=== PATIENT | female | born 1935 | race Caucasian/White ===

== ENCOUNTER 2017-09-28 09:39 | Outpatient (CLI) | payer MEDICARE ==
[2017-09-28 10:40] LABS: BASO % 0 % (0-3); EOS % 0 % (0-3); HEMATOCRIT 26.3 % (36.0-47.0); HEMOGLOBIN 8.8 g/dL (12.0-15.5); LYMPH % 22 % (24-48); MEAN CORPUSCULAR HEMOGLOBIN 24 pg (25-35); MEAN CORPUSCULAR HGB CONC 34 g/dL (31-37); MEAN CORPUSCULAR VOLUME 72 fL (79-100); MONO % 22 % (0-9); NEUT # 2.4 x10^3uL (1.8-7.7); NEUT % 55 % (31-73); PLATELET COUNT 30 x10^3/uL (140-400); RED BLOOD COUNT 3.66 x10^6/uL (3.50-5.40); RED CELL DISTRIBUTION WIDTH 27.1 % (11.5-14.5); WHITE BLOOD COUNT 4.4 x10^3/uL (4.0-11.0)
[2017-09-28] MEDS ORDERED: LIDOCAINE WITH 8.4% SOD BICARB 3 ML DISP.SYRIN. (10:45)
[2017-09-28 10:47] LABS: INR 1.3 (0.8-1.1); PROTHROMBIN TIME PATIENT 15.8 SEC (11.7-14.0)
[2017-09-28 10:56] LABS: ADD MAN DIFF? YES
[2017-09-28] MEDS ORDERED: FLUMAZENIL 0.5 MG/5 ML VIAL. IV (11:52)
[2017-09-28] MEDS ORDERED: fentaNYL PF VIAL 100 MCG/2 ML VIAL (11:52)
[2017-09-28] MEDS ORDERED: MIDAZOLAM HCL/PF 2 MG/2 ML VIAL. (11:52)
[2017-09-28] MEDS ORDERED: NALOXONE 0.4 MG/ML VIAL. (11:52)
[2017-09-28] MEDS: MIDAZOLAM HCL/PF 2 MG/2 ML VIAL. IV (12:34)
[2017-09-28] MEDS: LIDOCAINE WITH 8.4% SOD BICARB 3 ML DISP.SYRIN. IJ (12:35)
[2017-09-28] MEDS: fentaNYL PF VIAL 100 MCG/2 ML VIAL IV (12:35)
[2017-09-28 13:20] LABS: % BANDS 12 % (0-9); % EOS 1 % (0-5); % LYMPHS 23 % (24-48); % MONOS 10 % (0-10); % SEGS 50 % (35-66); PLT ESTIMATE DECREASED (ADEQUATE)
[2017-09-28 13:22] LABS: ANISOCYTOSIS MARKED; HYPOCHROMIA SLIGHT; MICROCYTOSIS MOD
[2017-09-28 13:23] LABS: % OTHERS 4 % (0-0)
[2017-09-28 13:24] LABS: SCHISTOCYTES FEW
== END 2017-09-28 14:30 | disposition home or self-care (01) ==
LOC: INTRAD 09:39
DX: D61.818 Other pancytopenia (principal)
CPT/HCPCS: 36415; 38222; 77012; 85007; 85025; 85610; 88184; 88185; 88237; 99152; J2250; J3010

== ENCOUNTER → 2017-12-06 | Outpatient (CLI) | payer MEDICARE ==
[2017-12-06 08:20] LABS: HEMATOCRIT 24.7 % (36.0-47.0); HEMOGLOBIN 8.3 g/dL (12.0-15.5); MEAN CORPUSCULAR HEMOGLOBIN 25 pg (25-35); MEAN CORPUSCULAR HGB CONC 34 g/dL (31-37); MEAN CORPUSCULAR VOLUME 74 fL (79-100); PLATELET COUNT 33 x10^3/uL (140-400); RED BLOOD COUNT 3.33 x10^6/uL (3.50-5.40); RED CELL DISTRIBUTION WIDTH 31.1 % (11.5-14.5); WHITE BLOOD COUNT 6.5 x10^3/uL (4.0-11.0)
[2017-12-06 09:40] LABS: IMMEDIATE SPIN CROSSMATCH 1 1
== END | disposition home or self-care (01) ==
LOC: OPS 08:03
DX: D46.9 Myelodysplastic syndrome, unspecified (principal); J44.9 Chronic obstructive pulmonary disease, unspecified; I25.10 Atherosclerotic heart disease of native coronary artery without angina pectoris; I11.0 Hypertensive heart disease with heart failure; I50.30 Unspecified diastolic (congestive) heart failure; E78.5 Hyperlipidemia, unspecified; F17.200 Nicotine dependence, unspecified, uncomplicated; D69.6 Thrombocytopenia, unspecified; Z95.1 Presence of aortocoronary bypass graft; Z99.81 Dependence on supplemental oxygen
CPT/HCPCS: 36415; 36430; 85027; 86850; 86900; 86901; 86920; P9016

== ENCOUNTER 2017-12-09 09:06 | Inpatient (IN) | payer MEDICARE ==
[2017-12-09 09:45] LABS: ANION GAP 13 (6-14); BASE EXCESS ABG -2 mmol/L (-3-3); BLOOD UREA NITROGEN 15 mg/dL (7-20); CALCIUM 8.1 mg/dL (8.5-10.1); CARBON DIOXIDE 22 mmol/L (21-32); CHLORIDE 91 mmol/L (98-107); GFR 53.1; GLUCOSE 124 mg/dL (70-99); HCO3 ABG 21 mmol/L (21-28); PCO2 ABG 30 mmHg (35-46); PH ABG 7.47 (7.35-7.45); PO2 ABG 58 mmHg (65-108); POTASSIUM 4.3 mmol/L (3.5-5.1); SAT O2 ABG 90 % (92-99); SODIUM 126 mmol/L (136-145)
[2017-12-09 09:47] LABS: BILIRUBIN,URINE NEGATIVE (NEG); CLARITY,URINE CLEAR; COLOR,URINE AMBER; GLUCOSE,URINE NEGATIVE (NEG); NITRITE,URINE NEGATIVE (NEG); PROTEIN,URINE 100 mg/dL (NEG-TRACE)
[2017-12-09 09:52] LABS: FIO2 ABG 32
[2017-12-09 09:53] LABS: LACTIC ACID 2.9 mmol/L (0.4-2.0)
[2017-12-09 09:55] LABS: TROPONINI < 0.017 ng/mL (0.000-0.055)
[2017-12-09 09:58] LABS: BASO # 0.1 x10^3/uL (0.0-0.2); BASO % 1 % (0-3); EOS % 0 % (0-3); HEMATOCRIT 32.2 % (36.0-47.0); HEMOGLOBIN 10.8 g/dL (12.0-15.5); LYMPH # 0.7 x10^3/uL (1.0-4.8); LYMPH % 5 % (24-48); MEAN CORPUSCULAR HEMOGLOBIN 25 pg (25-35); MEAN CORPUSCULAR HGB CONC 34 g/dL (31-37); MEAN CORPUSCULAR VOLUME 76 fL (79-100); MONO # 2.2 x10^3/uL (0.0-1.1); MONO % 16 % (0-9); NEUT % 79 % (31-73); PLATELET COUNT 31 x10^3/uL (140-400); RED BLOOD COUNT 4.26 x10^6/uL (3.50-5.40); RED CELL DISTRIBUTION WIDTH 29.2 % (11.5-14.5)
[2017-12-09] MEDS: IV NORMAL SALINE 1000ML BAG 1,000 ML IV ×3 (09:59→21:00)
[2017-12-09] MEDS: PIPERACILLIN/TAZOBACTAM 3.375 GM in IV NORMAL SALINE 50ML 50 ML IV (10:05)
[2017-12-09 10:15] LABS: BACTERIA,URINE 0 /HPF (0-FEW); RBC,URINE OCC /HPF (0-2); SQUAMOUS EPITHELIAL CELL,UR MOD /LPF; WBC,URINE 0 /HPF (0-4)
[2017-12-09 10:16] LABS: ADD MAN DIFF? YES
[2017-12-09 10:36] LABS: PROCALCITONIN 3.87 ng/mL (0.00-0.10)
[2017-12-09] MEDS: VANCOMYCIN 1GM IVPB FOR OMNI 250 ML IV (10:37)
[2017-12-09] MEDS: ETOMIDATE 20 MG/10 ML VIAL. IV (11:58)
[2017-12-09] MEDS: SUCCINYLCHOLINE 200 MG/10 ML VIAL. IV (11:58)
[2017-12-09] MEDS ORDERED: FUROSEMIDE 40 MG/4 ML VIAL. (12:21)
[2017-12-09] MEDS: ACETAMINOPHEN 500 MG TABLET PO (12:32)
[2017-12-09 13:43] LABS: BASE EXCESS ABG -8 mmol/L (-3-3); HCO3 ABG 20 mmol/L (21-28); PCO2 ABG 55 mmHg (35-46); PH ABG 7.18 (7.35-7.45); PO2 ABG 82 mmHg (65-108)
[2017-12-09 13:44] LABS: FIO2 ABG 100; O2 DELIVERY DEVICE VENT; SAT O2 ABG 93 % (92-99)
[2017-12-09] MEDS: MIDAZOLAM 100mg/100ml NS BAG 100 ML IV (15:00)
[2017-12-09] MEDS: IV DEXTROSE 5% - 0.9 % NACL 1,000 ML IV (15:13)
[2017-12-09] MEDS: PHENYLEPHRINE INJ 20 MG in IV NORMAL SALINE 250ML 250 ML IV (15:13)
[2017-12-09] MEDS ORDERED: traMADol 50 MG TABLET PO (15:15)
[2017-12-09] MEDS ORDERED: IV NORMAL SALINE 1000ML BAG 1,000 ML IV (15:15)
[2017-12-09] MEDS ORDERED: hydrALAZINE 20 MG/ML VIAL. IVP (15:15)
[2017-12-09] MEDS ORDERED: VANCOMYCIN 1.75 GM in IV DEXTROSE 5% 500 ML IV (15:15)
[2017-12-09] MEDS ORDERED: ACETAMINOPHEN 325 MG TABLET. PO (15:15)
[2017-12-09] MEDS ORDERED: DOCUSATE SODIUM 100 MG CAPSULE. PO (15:15)
[2017-12-09] MEDS ORDERED: ONDANSETRON PF 4 MG/2 ML VIAL. IV (15:15)
[2017-12-09] MEDS ORDERED: MORPHINE SULFATE 2 MG/ML DISP.SYRIN. IV (15:15)
[2017-12-09] MEDS ORDERED: VANCOMYCIN 750 MG in IV 1/2 NORMAL SALINE 250 ML IV (15:30)
[2017-12-09] MEDS: VANCOMYCIN PER PHARMACY MC (16:23)
[2017-12-09] MEDS: VANCOMYCIN 500 MG in IV DEXTROSE 5% 100ML 100 ML IV (16:40)
[2017-12-09] MEDS: MEROPENEM 1 GM in IV NORMAL SALINE 100ML 100 ML IV (16:41)
[2017-12-09] MEDS ORDERED: NOREPINEPHRIN 8MG/250ML PREMIX 250 ML IV (16:45)
[2017-12-09] MEDS: NORMAL SALINE IV (16:57)
[2017-12-09] MEDS: PHENYLEPHRINE IV (16:57)
[2017-12-09] MEDS: VASOPRESSIN 40 UNIT in IV DEXTROSE 5% 100ML 100 ML IV (18:39)
[2017-12-09] MEDS ORDERED: PHENYLEPHRINE INJ 80 MG in IV NORMAL SALINE 250ML 250 ML IV (19:00)
[2017-12-09 19:23] LABS: % BANDS 51 % (0-9); % LYMPHS 1 % (24-48); % METAS 1 % (0-0); % MONOS 16 % (0-10); % MYELOS 3 % (0-0); % SEGS 27 % (35-66)
[2017-12-09 19:28] LABS: PLT ESTIMATE DECREASED (ADEQUATE)
[2017-12-09 19:29] LABS: ANISOCYTOSIS MARKED; BIZZARE CELLS FEW; SCHISTOCYTES MOD; TOXIC GRANULATION PRESENT
[2017-12-09 19:33] LABS: NUCLEATED RBC 1
[2017-12-09 19:39] LABS: % OTHERS 1 % (0-0)
[2017-12-09 19:41] LABS: TOXIC VACUOLATION MARKED
[2017-12-09 20:36] LABS: HEMATOCRIT 32.9 % (36.0-47.0); HEMOGLOBIN 10.8 g/dL (12.0-15.5); MEAN CORPUSCULAR HEMOGLOBIN 26 pg (25-35); MEAN CORPUSCULAR HGB CONC 33 g/dL (31-37); MEAN CORPUSCULAR VOLUME 79 fL (79-100); PLATELET COUNT 26 x10^3/uL (140-400); RED BLOOD COUNT 4.18 x10^6/uL (3.50-5.40); RED CELL DISTRIBUTION WIDTH 30.4 % (11.5-14.5); WHITE BLOOD COUNT 8.9 x10^3/uL (4.0-11.0)
[2017-12-09 20:50] LABS: ANION GAP 13 (6-14); BLOOD UREA NITROGEN 19 mg/dL (7-20); CALCIUM 6.8 mg/dL (8.5-10.1); CARBON DIOXIDE 17 mmol/L (21-32); CHLORIDE 102 mmol/L (98-107); GFR 23.9; GLUCOSE 143 mg/dL (70-99); POTASSIUM 3.9 mmol/L (3.5-5.1); SODIUM 132 mmol/L (136-145)
[2017-12-09 20:54] LABS: MAGNESIUM 1.3 mg/dL (1.8-2.4); PHOSPHORUS 3.7 mg/dL (2.6-4.7)
[2017-12-09] MEDS ORDERED: IV DEXTROSE 5 %-0.45 % NACL 1,000 ML IV (21:00)
[2017-12-09 21:15] LABS: LACTIC ACID 6.8 mmol/L (0.4-2.0)
[2017-12-09] MEDS: FAMOTIDINE 20 MG/2 ML VIAL IVP (21:45)
[2017-12-09] MEDS: methylPREDNISolone SOD SUCC PF 125 MG/2 ML VIAL. IV (22:00)
[2017-12-09] MEDS ORDERED: MAGNESIUM SULFATE 2GM 50 ML IV (23:00)
[2017-12-09] MEDS ORDERED: ALBUTEROL SULFATE 2.5 MG/3 ML NEBU. NEB (23:00)
[2017-12-09 23:34] LABS: BASE EXCESS ABG -24 mmol/L (-3-3); HCO3 ABG 9 mmol/L (21-28); PCO2 ABG 48 mmHg (35-46); PO2 ABG 64 mmHg (65-108); SAT O2 ABG 81 % (92-99)
[2017-12-09 23:35] LABS: PH ABG 6.88 (7.35-7.45)
[2017-12-09 23:36] LABS: FIO2 ABG 100
[2017-12-10] MEDS ORDERED: VANCOMYCIN 1 GM in IV DEXTROSE 5% 250 ML IV (17:00)
[2017-12-11 01:11] LABS: MRSA BY PCR Negative (Negative)
== END 2017-12-09 23:59 | disposition expired | DRG 871 ==
LOC: ER 09:06 → 5 SOUTH 10:52 → 1 WEST ICU 14:37
PROC: 5A09357 Assistance with Respiratory Ventilation, Less than 24 Consecutive Hours, Continuous Positive Airway Pressure (ICD-10-PCS; principal; 2017-12-09)
PROC: 5A1935Z Respiratory Ventilation, Less than 24 Consecutive Hours (ICD-10-PCS; 2017-12-09)
PROC: 0BH17EZ Insertion of Endotracheal Airway into Trachea, Via Natural or Artificial Opening (ICD-10-PCS; 2017-12-09)
DX: A41.9 Sepsis, unspecified organism (principal); G92 Toxic encephalopathy; J18.9 Pneumonia, unspecified organism; J96.21 Acute and chronic respiratory failure with hypoxia; R65.21 Severe sepsis with septic shock; E87.1 Hypo-osmolality and hyponatremia; E87.2 Acidosis; I50.30 Unspecified diastolic (congestive) heart failure; J44.0 Chronic obstructive pulmonary disease with (acute) lower respiratory infection; D46.9 Myelodysplastic syndrome, unspecified; D69.6 Thrombocytopenia, unspecified; D89.9 Disorder involving the immune mechanism, unspecified; E78.5 Hyperlipidemia, unspecified; F17.201 Nicotine dependence, unspecified, in remission; I11.0 Hypertensive heart disease with heart failure; I25.10 Atherosclerotic heart disease of native coronary artery without angina pectoris; Y95 Nosocomial condition; Z66 Do not resuscitate; Z82.49 Family history of ischemic heart disease and other diseases of the circulatory system; Z87.891 Personal history of nicotine dependence; Z88.2 Allergy status to sulfonamides; Z95.5 Presence of coronary angioplasty implant and graft; Z99.81 Dependence on supplemental oxygen; Z87.440 Personal history of urinary (tract) infections
CPT/HCPCS: 36415; 36600; 71045; 80048; 81001; 82805; 83605; 83735; 84100; 84145; 84484; 85007; 85025; 85027; 86850; 86900; 86901; 86920; 87040; 87070; 87205; 87641; 93005; 94002; 94640; 94660; J0330; J2185; J2250; J2543; J2930; J3370; J3490; J7030; J7042; J7050; S0028